=== PATIENT | female | born 1965 | race Caucasian/White ===

== ENCOUNTER 2017-06-25 21:14 | Emergency (ER) | payer BC ==
[2017-06-25 21:47] LABS: INFLUENZA A NEGATIVE (NEGATIVE); INFLUENZA B NEGATIVE (NEGATIVE)
[2017-06-25] MEDS: IPRATROPIUM/ALBUTEROL (0.5MG/3MG) NEB INH ONE (22:29)
--- NOTE | 2017-06-25 22:51 | Emergency Department Record ---
History of Present Illness - General Chief Complaint: Cough Stated Complaint: COUGH,ROSAMARIA, Time Seen by Provider: 06/25/17 22:21 Source: Patient Mode of Arrival: Ambulatory Limitations: No limitations - History of Present Illness Initial Comments: pt has had a cough for 2 weeks that is getting worse and is productive yellow Complaint: Cough, Fever, Nasal congestion Onset/Timin -: Week(s) Severity: Mild Consistency: Constant, Getting worse Improves With: Nothing Worsens With: Nothing Associated Symptoms: Cough, Fever, Hoarseness, Nasal congestion - Related Data Previous Rx's Medication Instructions Recorded Amoxicillin/Potassium Clav 1 tab PO BID #20 tablet 06/25/17 [Augmentin 875Mg/125Mg] Benzonatate [Tessalon] 100 mg PO QHS #10 capsule 06/25/17 Allergies Allergy/AdvReac Type Severity Reaction Status Date / Time azithromycin [From Zithromax] Allergy redness, Verified 01/24/16 22:12 itching at IV site Travel Screening - Travel/Exposure Within Last 30 Days Have you traveled within the last 30 days?: No - Travel/Exposure Within Last Year Have you traveled outside the [place] in the last year?: No - Additonal Travel Details Have you been exposed to anyone with a communicable illness?: No - Travel Symptoms Symptom Screening: None Review of Systems Reviewed: No additional complaints except as noted below Constitutional: Reports: As per HPI. Denies: Chills, Fever, Malaise, Night sweats, Weakness, Weight change Eyes: Reports: As per HPI. Denies: Eye discharge, Eye pain, Photophobia, Vision change ENT: Reports: As per HPI, Congestion. Denies: Dental pain, Ear pain, Epistaxis , Hearing loss, Throat pain Respiratory: Reports: As per HPI, Cough, Dyspnea. Denies: Hemoptysis, Stridor, Wheezes Cardiovascular: Reports: As per HPI. Denies: Arrhythmia, Chest pain, Dyspnea on exertion, Edema, Murmurs, Orthopnea, Palpitations, Paroxysmal nocturnal dyspnea, Rheumatic Fever, Syncope Endocrine: Reports: As per HPI. Denies: Fatigue, Heat or cold intolerance, Polydipsia, Polyuria Gastrointestinal: Reports: As per HPI. Denies: Abdominal pain, Constipation, Diarrhea, Hematemesis, Hematochezia, Melena, Nausea, Vomiting Genitourinary: Reports: As per HPI. Denies: Abnormal menses, Discharge, Dyspareunia, Dysuria, Frequency, Hematuria, Incontinence, Retention, Urgency Musculoskeletal: Reports: As per HPI. Denies: Arthralgia, Back pain, Gout, Joint swelling, Myalgia, Neck pain Skin: Reports: As per HPI. Denies: Bruising, Change in color, Change in hair/ nails, Lesions, Pruritus, Rash Neurological: Reports: As per HPI. Denies: Abnormal gait, Confusion, Headache, Numbness, Paresthesias, Seizure, Tingling, Tremors, Vertigo, Weakness Psychiatric: Reports: As per HPI. Denies: Anxiety, Auditory hallucinations, Depression, Homicidal thoughts, Suicidal thoughts, Visual hallucinations Hematological/Lymphatic: Reports: As per HPI. Denies: Anemia, Blood Clots, Easy bleeding, Easy bruising, Swollen glands Past Medical History - SOCIAL HISTORY Smoking Status: Current every day smoker Alcohol Use: Occasional Drug Use: None - RESPIRATORY Hx Respiratory Disorders: No - CARDIOVASCULAR Hx Cardio Disorders: No - NEURO Hx Neuro Disorders: No - GI Hx GI Disorders: Yes Hx Reflux: Yes - Hx Genitourinary Disorders: No - ENDOCRINE Hx Endocrine Disorders: No - MUSCULOSKELETAL Hx Musculoskeletal Disorders: No - PSYCH Hx Psych Problems: No - HEMATOLOGY/ONCOLOGY Hx Hematology/Oncology Disorders: Yes Hx Cancer: Yes (breast) Hx Chemotherapy: Yes Hx Radiation Therapy: Yes Family Medical History Any Significant Family History?: No Physical Exam - General General Appearance: Alert, Oriented x3, Cooperative, Mild distress - Head Head exam: Normal inspection - Eye Eye exam: Normal appearance, PERRL, EOMI Pupils: Normal accommodation - ENT ENT exam: Normal exam, Mucous membranes moist, Normal external ear exam, Normal orophraynx Ear exam: Normal external inspection. negative: External canal tenderness Nasal Exam: Normal inspection. negative: Discharge, Sinus tenderness Mouth exam: Normal external inspection, Tongue normal Teeth exam: Normal inspection. negative: Dental caries Throat exam: Normal inspection. negative: Tonsillar erythema, Tonsillar exudate - Neck Neck exam: Normal inspection, Full ROM. negative: Tenderness - Respiratory Respiratory exam: Normal lung sounds bilaterally. negative: Respiratory distress - Cardiovascular Cardiovascular Exam: Normal rhythm, Normal heart sounds, Tachycardia - GI/Abdominal GI/Abdominal exam: Soft, Normal bowel sounds. negative: Tenderness - Rectal Rectal exam: Deferred - exam: Deferred - Extremities Extremities exam: Normal inspection, Full ROM, Normal capillary refill. negative: Tenderness - Back Back exam: Reports: Normal inspection, Full ROM. Denies: Muscle spasm, Rash noted, Tenderness - Neurological Neurological exam: Alert, CN II-XII intact, Normal gait, Oriented X3 - Psychiatric Psychiatric exam: Normal affect, Normal mood - Skin Skin exam: Dry, Intact, Normal color, Warm Course Vital Signs 06/25/17 06/25/17 06/25/17 21:19 22:19 22:33 Temperature 99.0 F 98.7 F Pulse Rate 110 H 86 Pulse Rate [ 87 Pulse Ox Probe] Respiratory 20 18 16 Rate Blood Pressure 153/86 Blood Pressure 121/85 [Left Arm] Pulse Ox 95 97 96 Medical Decision Making - Lab Data Lab Results 06/25/17 06/25/17 Range/Units 21:25 21:28 Influenza Virus (PCR) Cancelled Influenza Type A Ag Negative (NEGATIVE) Influenza Type B Ag Negative (NEGATIVE) Specimen Comment Cancelled Disposition Disposition: Discharge Clinical Impression: Pneumonia Qualifiers: Pneumonia type: due to unspecified organism Laterality: bilateral Lung location : lower lobe of lung Qualified Code(s): J18.9 - Pneumonia, unspecified organism Disposition: Home, Self-Care Condition: (1) Good Instructions: Bacterial Pneumonia (ED) Additional Instructions: follow up with family doctor. return sooner if worse. rest Prescriptions: Benzonatate [Tessalon] 100 mg PO QHS #10 capsule Amoxicillin/Potassium Clav [Augmentin 875Mg/125Mg] 1 tab PO BID #20 tablet Forms: Patient Portal Access Quality - Quality Measures Quality Measures: N/A - Blood Pressure Screening Does Patient Have Any of the Following: No Blood Pressure Classification: Pre-Hypertensive BP Reading Systolic Measurement: 153 Diastolic Measurement: 86 Screening for High Blood Pressure: < Pre-Hypertensive BP, F/U Documented > [ G8950] Pre-Hypertensive Follow-up Interventions: Follow-up with rescreen every year.
[2017-06-25] MEDS: AMOXICILLIN/POTASSIUM CLAV 875MG/125MG TABLET PO ONE (23:44)
[2017-06-25] MEDS: BENZONATATE 100 MG CAPSULE PO ONE (23:44)
--- NOTE | 2017-06-26 20:48 | RADIOLOGY REPORT ---
EXAM: CHEST 2 VIEWS HISTORY: PRODUCTIVE COUGH WITH YELLOW/GREEN MUCOUS FOR THREE WEEKS. TECHNIQUE: PA and lateral views. COMPARISON: Portable chest 01/24/16. FINDINGS: Heart size is within normal limits. Surgical clips overlying the right lateral chest may be in the axillary region, as before. A couple of surgical clips also overlie the right lung base, which may be in the right breast. No definite acute infiltrate is seen and no pleural effusion or pneumothorax evident. Mild thoracic curve to the right. Relatively deep inspiration taken. IMPRESSION: 1. NO ACUTE INFILTRATE EVIDENT. 2. POST-OP CHANGES, PROBABLY WITHIN THE RIGHT AXILLA AND RIGHT BREAST. 3. THORACIC CURVE TO THE RIGHT. 4. RELATIVELY DEEP INSPIRATION TAKEN. JOB NUMBER: [id number] MTDD
== END 2017-06-25 23:48 | disposition home or self-care (01) ==
LOC: ER 21:14
DX: J18.9 Pneumonia, unspecified organism (principal); F17.210 Nicotine dependence, cigarettes, uncomplicated
CPT/HCPCS: 71046; 87400; 94640; 99283; 99284

== ENCOUNTER 2018-07-19 12:15 | Emergency (ER) | payer BC, MEDICAID, OTHER ==
[2018-07-19] MEDS ORDERED: IBUPROFEN 600 MG TABLET PO ONE (13:19)
--- NOTE | 2018-07-19 13:28 | Emergency Department Record ---
History of Present Illness - General Chief Complaint: Ankle/Foot Injury Stated Complaint: R FOOT INJURY Time Seen by Provider: 07/19/18 12:56 Source: Patient Mode of Arrival: Ambulatory Limitations: No limitations - History of Present Illness Initial Comments: pt accidentally kicked a metal heater with her foot last night. it continues to hurt Complaint: Foot injury Onset/Timin -: Hour(s) Injury: Foot: Right Type of Injury: Blunt Place: Home Severity: Mild Improves With: Rest Worsens With: Palpation, Weight bearing Context: Direct blow, Other Associated Symptoms: Able to partially bear weight - Related Data Previous Rx's Medication Instructions Recorded Hydrocodone/Acetaminophen [Glennie 1 each PO Q6HR #7 tablet 07/19/18 5-325 Tablet] Allergies Allergy/AdvReac Type Severity Reaction Status Date / Time adhesive tape Allergy RASH Verified 07/19/18 12:28 azithromycin [From Zithromax] Allergy redness, Verified 01/24/16 22:12 itching at IV site Travel Screening - Travel/Exposure Within Last 30 Days Have you traveled within the last 30 days?: Yes Location Detail:: [facility] - Travel/Exposure Within Last Year Have you traveled outside the [place] in the last year?: Yes Location Detail:: [place] - Additonal Travel Details Have you been exposed to anyone with a communicable illness?: No - Travel Symptoms Symptom Screening: None Review of Systems Reviewed: No additional complaints except as noted below Constitutional: Reports: As per HPI. Denies: Chills, Fever, Malaise, Night sweats, Weakness, Weight change Eyes: Reports: As per HPI. Denies: Eye discharge, Eye pain, Photophobia, Vision change ENT: Reports: As per HPI. Denies: Congestion, Dental pain, Ear pain, Epistaxis , Hearing loss, Throat pain Respiratory: Reports: As per HPI. Denies: Cough, Dyspnea, Hemoptysis, Stridor, Wheezes Cardiovascular: Reports: As per HPI. Denies: Arrhythmia, Chest pain, Dyspnea on exertion, Edema, Murmurs, Orthopnea, Palpitations, Paroxysmal nocturnal dyspnea, Rheumatic Fever, Syncope Endocrine: Reports: As per HPI. Denies: Fatigue, Heat or cold intolerance, Polydipsia, Polyuria Gastrointestinal: Reports: As per HPI. Denies: Abdominal pain, Constipation, Diarrhea, Hematemesis, Hematochezia, Melena, Nausea, Vomiting Genitourinary: Reports: As per HPI. Denies: Abnormal menses, Discharge, Dyspareunia, Dysuria, Frequency, Hematuria, Incontinence, Retention, Urgency Musculoskeletal: Reports: As per HPI. Denies: Arthralgia, Back pain, Gout, Joint swelling, Myalgia, Neck pain Skin: Reports: As per HPI. Denies: Bruising, Change in color, Change in hair/ nails, Lesions, Pruritus, Rash Neurological: Reports: As per HPI. Denies: Abnormal gait, Confusion, Headache, Numbness, Paresthesias, Seizure, Tingling, Tremors, Vertigo, Weakness Psychiatric: Reports: As per HPI. Denies: Anxiety, Auditory hallucinations, Depression, Homicidal thoughts, Suicidal thoughts, Visual hallucinations Hematological/Lymphatic: Reports: As per HPI. Denies: Anemia, Blood Clots, Easy bleeding, Easy bruising, Swollen glands Past Medical History - SOCIAL HISTORY Smoking Status: Current every day smoker Alcohol Use: Occasional - RESPIRATORY Hx Respiratory Disorders: No - CARDIOVASCULAR Hx Cardio Disorders: No - NEURO Hx Neuro Disorders: No - GI Hx GI Disorders: Yes Hx Reflux: Yes - Hx Genitourinary Disorders: No - ENDOCRINE Hx Endocrine Disorders: No - MUSCULOSKELETAL Hx Musculoskeletal Disorders: No - PSYCH Hx Psych Problems: Yes Comment:: PTSD - HEMATOLOGY/ONCOLOGY Hx Hematology/Oncology Disorders: Yes Hx Cancer: Yes (breast) Hx Chemotherapy: Yes Hx Radiation Therapy: Yes Family Medical History Any Significant Family History?: No Physical Exam - General General Appearance: Alert, Oriented x3, Cooperative, Mild distress - Head Head exam: Normal inspection - Eye Eye exam: Normal appearance, PERRL, EOMI Pupils: Normal accommodation - ENT ENT exam: Normal exam, Mucous membranes moist, Normal external ear exam, Normal orophraynx, TM's normal bilaterally Ear exam: Normal external inspection. negative: External canal tenderness Nasal Exam: Normal inspection. negative: Discharge, Sinus tenderness Mouth exam: Normal external inspection, Tongue normal Teeth exam: Normal inspection. negative: Dental caries Throat exam: Normal inspection. negative: Tonsillar erythema, Tonsillar exudate - Neck Neck exam: Normal inspection, Full ROM. negative: Tenderness - Respiratory Respiratory exam: Normal lung sounds bilaterally. negative: Respiratory distress - Cardiovascular Cardiovascular Exam: Regular rate, Normal rhythm, Normal heart sounds - GI/Abdominal GI/Abdominal exam: Soft, Normal bowel sounds. negative: Tenderness - Rectal Rectal exam: Deferred - exam: Deferred - Extremities Extremities exam: Normal capillary refill, Tenderness (r foot). negative: Normal inspection, Full ROM Image of Feet: 1 - tender w ecchymosis - Back Back exam: Reports: Normal inspection, Full ROM. Denies: Muscle spasm, Rash noted, Tenderness - Neurological Neurological exam: Alert, CN II-XII intact, Normal gait, Oriented X3 - Psychiatric Psychiatric exam: Normal affect, Normal mood - Skin Skin exam: Dry, Intact, Normal color, Warm Course Vital Signs 07/19/18 12:18 Temperature 97.9 F Pulse Rate 78 Respiratory 16 Rate Blood Pressure 129/86 Pulse Ox 100 Disposition Disposition: Discharge Clinical Impression: Fracture of proximal phalanx of right great toe Qualifiers: Encounter type: initial encounter Fracture type: closed Fracture alignment: nondisplaced Qualified Code(s): S92.414A - Nondisplaced fracture of proximal phalanx of right great toe, initial encounter for closed fracture Disposition: Home, Self-Care Condition: (1) Good Instructions: Foot Fracture in Adults (ED) Additional Instructions: follow up with dr peña. return sooner if worse. ice and elevate Prescriptions: Hydrocodone/Acetaminophen [Glennie 5-325 Tablet] 1 each PO Q6HR #7 tablet Referrals: SHANKAR PEÑA [DOCTOR OF OSTEOPATH] - [facility] [Provider Group] Quality - Quality Measures Quality Measures: N/A - Blood Pressure Screening Does Patient Have Any of the Following: No Blood Pressure Classification: Pre-Hypertensive BP Reading Systolic Measurement: 129 Diastolic Measurement: 86 Screening for High Blood Pressure: < Pre-Hypertensive BP, F/U Documented > [ G8950] Pre-Hypertensive Follow-up Interventions: Follow-up with rescreen every year.
[2018-07-19] MEDS ORDERED: HYDROCODONE/APAP 5/325MG TABLET PO ONE (14:32)
--- NOTE | 2018-07-21 15:04 | RADIOLOGY REPORT ---
EXAM: RIGHT FOOT, THREE VIEWS HISTORY: PATIENT HAS INJURY TO THE FIRST DIGIT. TECHNIQUE: Three views of the right foot are provided without comparison examinations. FINDINGS: There is a nondisplaced vertical fracture of the proximal right first digit which extends to the articular surface of the first metatarsal phalangeal joint. Soft tissue swelling is noted over the first digit. The remaining digits are intact. The remainder of the visualized right foot is unremarkable. IMPRESSION: VERTICAL FRACTURE IDENTIFIED WITHIN THE PROXIMAL RIGHT FIRST PHALANX IS NOTED DISCUSSED ABOVE. J[facility]BER: [id number] [facility]
== END 2018-07-19 14:57 | disposition home or self-care (01) ==
LOC: ER 12:15
DX: S92.414A Nondisplaced fracture of proximal phalanx of right great toe, initial encounter for closed fracture (principal); F17.210 Nicotine dependence, cigarettes, uncomplicated; W22.8XXA Striking against or struck by other objects, initial encounter
CPT/HCPCS: 99283

== ENCOUNTER 2019-05-16 12:14 | Emergency (ER) | payer OTHER ==
--- NOTE | 2019-05-16 12:31 | Emergency Department Record ---
History of Present Illness - General Chief Complaint: Chest Pain Stated Complaint: CHEST PAIN Time Seen by Provider: 05/16/19 12:21 Source: Patient Mode of Arrival: Ambulatory - History of Present Illness Initial Comments: The patient states she has had a cold for a week and an half which improved as of 5 days ago. Then about a day and a half ago she developed sharp pleuritic ch est pain on the left side which goes in to her left scapula and left neck-chest boundary. It is associated with SOB. She has a history of pneumonia and this feels like that. She has thick yellow productive cough, chills, and slight sweats. It hurts to take a deep breath. She is a 1-2 pack per day smoker with a history of breast cancer in 2000 which included chemo and radiation. Onset/Timin -: Days(s) Onset: During rest Pain Location: Left chest Pain Radiation: LUE, Back, Neck Severity scale (1-10): 9 Quality: Sharp Consistency: Constant Improves With: Nothing Worsens With: Inspiration Treatments Prior to Arrival: None - Related Data Home Medications Medication Instructions Recorded Confirmed Last Taken Omeprazole Magnesium [Prilosec Otc] 20 mg PO ASDIR 05/16/19 05/16/19 Unknown Previous Rx's Medication Instructions Recorded Cyclobenzaprine HCl [Flexeril] 10 mg PO TID #20 tablet 05/16/19 Allergies Allergy/AdvReac Type Severity Reaction Status Date / Time adhesive tape Allergy RASH Verified 07/19/18 12:28 azithromycin [From Zithromax] Allergy redness, Verified 01/24/16 22:12 itching at IV site Travel Screening - Travel/Exposure Within Last 30 Days Have you traveled within the last 30 days?: No Review of Systems Reviewed: No additional complaints except as noted below Constitutional: Reports: As per HPI. Denies: Chills, Fever, Malaise, Night sweats, Weakness, Weight change Eyes: Reports: As per HPI. Denies: Eye discharge, Eye pain, Photophobia, Vision change ENT: Reports: As per HPI. Denies: Congestion, Dental pain, Ear pain, Epistaxis, Hearing loss, Throat pain Respiratory: Reports: As per HPI. Denies: Cough, Dyspnea, Hemoptysis, Stridor, Wheezes Cardiovascular: Reports: As per HPI. Denies: Arrhythmia, Chest pain, Dyspnea on exertion, Edema, Murmurs, Orthopnea, Palpitations, Paroxysmal nocturnal dyspnea, Rheumatic Fever, Syncope Endocrine: Reports: As per HPI. Denies: Fatigue, Heat or cold intolerance, Polydipsia, Polyuria Gastrointestinal: Reports: As per HPI. Denies: Abdominal pain, Constipation, Diarrhea, Hematemesis, Hematochezia, Melena, Nausea, Vomiting Genitourinary: Reports: As per HPI. Denies: Abnormal menses, Discharge, D yspareunia, Dysuria, Frequency, Hematuria, Incontinence, Retention, Urgency Musculoskeletal: Reports: As per HPI. Denies: Arthralgia, Back pain, Gout, Joint swelling, Myalgia, Neck pain Skin: Reports: As per HPI. Denies: Bruising, Change in color, Change in hair/nails, Lesions, Pruritus, Rash Neurological: Reports: As per HPI. Denies: Abnormal gait, Confusion, Headache, Numbness, Paresthesias, Seizure, Tingling, Tremors, Vertigo, Weakness Psychiatric: Reports: As per HPI. Denies: Anxiety, Auditory hallucinations, Depression, Homicidal thoughts, Suicidal thoughts, Visual hallucinations Hematological/Lymphatic: Reports: As per HPI. Denies: Anemia, Blood Clots, Easy bleeding, Easy bruising, Swollen glands Past Medical History - SOCIAL HISTORY Smoking Status: Current every day smoker - RESPIRATORY Hx Respiratory Disorders: No - CARDIOVASCULAR Hx Cardio Disorders: No - NEURO Hx Neuro Disorders: No - GI Hx GI Disorders: Yes Hx Reflux: Yes - Hx Genitourinary Disorders: No - ENDOCRINE Hx Endocrine Disorders: No - MUSCULOSKELETAL Hx Musculoskeletal Disorders: No - PSYCH Hx Psych Problems: Yes Comment:: PTSD - HEMATOLOGY/ONCOLOGY Hx Hematology/Oncology Disorders: Yes Hx Cancer: Yes (breast) Hx Chemotherapy: Yes Hx Radiation Therapy: Yes Family Medical History Any Significant Family History?: No Physical Exam - General General Appearance: Alert, Oriented x3, Cooperative, Mild distress - Head Head exam: Normal inspection - Eye Eye exam: Normal appearance, PERRL Pupils: Normal accommodation - ENT ENT exam: Normal exam, Mucous membranes moist, Normal external ear exam, Normal orophraynx, TM's normal bilaterally Ear exam: Normal external inspection. negative: External canal tenderness Nasal Exam: Normal inspection. negative: Discharge, Sinus tenderness Mouth exam: Normal external inspection, Tongue normal Teeth exam: Normal inspection. negative: Dental caries Throat exam: Normal inspection. negative: Tonsillar erythema, Tonsillar exudate - Neck Neck exam: Normal inspection, Full ROM. negative: Lymphadenopathy, Meningismus, Tenderness - Respiratory Respiratory exam: Normal lung sounds bilaterally. negative: Accessory muscle use, Chest wall tenderness, Respiratory distress - Cardiovascular Cardiovascular Exam: Regular rate, Normal rhythm, Normal heart sounds - GI/Abdominal GI/Abdominal exam: Soft, Normal bowel sounds. negative: Tenderness - Rectal Rectal exam: Deferred - exam: Deferred - Extremities Extremities exam: Normal inspection, Full ROM, Normal capillary refill. negative: Calf tenderness, Pedal edema, Tenderness - Back Back exam: Reports: Normal inspection, Full ROM. Denies: CVA tenderness (R), CVA tenderness (L), Muscle spasm, Rash noted, Tenderness - Neurological Neurological exam: Alert, CN II-XII intact, Normal gait, Oriented X3, Reflexes normal. negative: Motor sensory deficit - Psychiatric Psychiatric exam: Normal affect, Normal mood - Skin Skin exam: Dry, Intact, Normal color, Warm. negative: Rash Course Vital Signs 05/16/19 12:16 Temperature 98.9 F Pulse Rate 88 Respiratory 22 Rate Blood Pressure 141/58 Pulse Ox 100 - Reevaluation(s) Reevaluation #1: Re exam the patient states she hurts to breathe deep and feels better sitting upright due to upper chest wall discomfort on breathing. All labs reviewed with patient and CTA results reviewed. Will try duoneb, toradol, norflex and recheck. 05/16/19 15:34 05/16/19 18:20 The patient feels much better with norflex and toradol. Will send her home on flexeril and motrin if repeat troponin is not rising. Reevaluation #2: Repeat troponin is unchanged. Patient informed and will be discharged home on flexeril and motrin. All questions answered. REady for DC. PCP follow up . 05/16/19 18:57 Medical Decision Making - Management Options MDM Management: No Additional Work-up Planned - Data Complexity MDM Data: Labs Ordered and/or Reviewed, X-Ray Ordered and/or Reviewed (CTA No evidence of acute pulmonary embolism or other acute abnormality. Per ra diologist.), EKG Ordered and/or Reviewed (EKG: NSR borderline low voltage limb leads but no acute ST elevation and no prior for comparison) - Lab Data Result diagrams: 05/16/19 12:25 05/16/19 12:25 Disposition Disposition: Discharge Clinical Impression: Pleuritic chest pain Disposition: Home, Self-Care Condition: (1) Good Instructions: Chest Pain (ED), Pleurisy (ED) Additional Instructions: Flexeril three times daily for chest wall muscle spasm Motrin/ibuprofen 800mg three times daily WITH FOOD for pleuritic chest pain. Follow up with PCP at [facility] as needed. Prescriptions: Cyclobenzaprine HCl [Flexeril] 10 mg PO TID #20 tablet Quality - Quality Measures Quality Measures: N/A - Blood Pressure Screening Does Patient Have Any of the Following: No Blood Pressure Classification: Hypertensive Reading Systolic Measurement: 141 Diastolic Measurement: 58 Screening for High Blood Pressure: < Pre-Hypertensive BP, F/U Documented > [G8950] Pre-Hypertensive Follow-up Interventions: Follow-up with rescreen every year., Lifestyle modifications., Referral to alternative/primary care provider. Lifestyle Modification: Weight Reduction, Dietary Approaches to Stop Hypertension (DASH) Eating Plan, Dietary Sodium Restriction, Increased Physical Activity, Moderation in alcohol (ETOH) consumption
[2019-05-16 12:43] LABS: BASO % 0.3 % (0-6); EOS % 3.3 % (0-6); GRAN % 68.7 % (47-80); HEMATOCRIT 42.1 % (35.0-47.0); HEMOGLOBIN 13.6 gm/dl (11.6-16.0); LYMPH % 18.9 % (16-45); MEAN CELL VOLUME 88.3 fl (81-97); MEAN CORPUSCULAR HEMOGLOBIN 28.5 pg (27-33); MEAN CORPUSCULAR HGB CONC 32.3 g/dl (32-36); MEAN PLATELET VOLUME 10.3 fl (7.4-10.4); MONO % 8.8 % (0-9); PLATELET COUNT 331 K/uL (130-400); RED BLOOD COUNT 4.77 M/uL (3.80-5.40); WHITE BLOOD COUNT W/O DIFF 8.9 K/uL (4.2-12.2)
[2019-05-16 12:57] LABS: PARTIAL THROMBOPLASTIN TIME 27.3 SECONDS (24.5-39.1); PROTHROMBIN TIME (PATIENT) 10.5 SECONDS (9.5-12.1)
[2019-05-16 12:59] LABS: BLOOD UREA NITROGEN 10 mg/dL (6-20); CREATININE 0.6 mg/dL (0.5-0.9); EST GLOMERULAR FILTRATION RATE > 60 mL/min; TOTAL PROTEIN 7.6 g/dL (6.6-8.7)
[2019-05-16 13:01] LABS: GLUCOSE,RANDOM 116 mg/dL (74-109)
[2019-05-16 13:04] LABS: ALB/GLOB RATIO 1.4 (1.1-1.8); ALBUMIN 4.4 g/dL (4.0-5.0); ALKALINE PHOSPHATASE 151 U/L (35-104); ALT/SGPT 21 U/L (<33); AST/SGOT 24 U/L (10.0-35.0)
[2019-05-16 13:08] LABS: NTpro B-NATRIURETIC PEPTIDE 15.41 pg/mL (<125)
[2019-05-16 13:18] LABS: THYROID STIMULATING HORMONE 1.12 uIU/mL (0.270-4.20)
--- NOTE | 2019-05-16 15:07 | CT ANGIOGRAM REPORT ---
EXAMINATION: CT Angiography of the Thorax EXAM DATE: 05/16/2019 2:18 PM TECHNIQUE: Standard protocol CT angiogram images were obtained through the chest following the admini stration of intravenous contrast. Coronal and sagittal MIP 3-D reformations were performed. IV Contrast: The amount and type of contrast are recorded in the medical record. INDICATION: CHEST PAIN ELEVATED DDIMER. COMPARISON: January [address] ENCOUNTER: Not applicable FINDINGS: Pulmonary Artery: Opacification of the pulmonary arterial vasculature is excellent and no acute or ch ronic pulmonary emboli are identified. The pulmonary arteries are normal in caliber. Aorta: No thoracic aortic aneurysm or dissection is present. Right Heart Strain: None. Heart : Trace pericardial effusion. Normal heart size. Radha and Mediastinum: No lymphadenopathy. Lung Parenchyma: Normal. Central Airways: Normal. Pleural Effusion: None. Upper Abdomen: Unremarkable. Musculoskeletal and Chest Wall: Unremarkable. IMPRESSION: No evidence of pulmonary embolism or other acute cardiopulmonary abnormality. Dictated by: Jesus Washington MD on 05/16/2019 2:49 PM. .
[2019-05-16] MEDS ORDERED: KETOROLAC 60 MG/2 ML VIAL IVP STA (15:31)
[2019-05-16] MEDS ORDERED: ORPHENADRINE CITRATE 60MG/2ML VIAL IVP ONE (15:31)
[2019-05-16] MEDS ORDERED: IPRATROPIUM/ALBUTEROL (0.5MG/3MG) NEB INH ONE (15:34)
[2019-05-16] MEDS ORDERED: CYCLOBENZAPRINE 10MG TABLET PO ONE (19:07)
== END 2019-05-16 19:23 | disposition home or self-care (01) ==
LOC: ER 12:14
DX: R07.81 Pleurodynia (principal); R05 Cough; F17.210 Nicotine dependence, cigarettes, uncomplicated
CPT/HCPCS: 99284 ×2; 96374; 96375; 85025; 85730; 85610; 80053; 84443; 84484; 85379; 83880; 71275; 94640; 93005; 93010; Q9967; J1885; J2360